=== PATIENT | male | born 1985 | race Hispanic/Latino ===

== ENCOUNTER 2020-03-27 10:52 | Observation (INO) | payer MEDICAID ==
[2020-03-27] VITALS (9 sets, daily range): BP systolic 107–138; BP diastolic 53–83
[~2020-03-27] VITALS: Ht 177.8 cm; Wt 109.0 kg
--- NOTE | 2020-03-27 11:07 | NUR ---
PT TO ROOM FOR EXAM
--- NOTE | 2020-03-27 11:10 | NUR ---
PT CHANGED TO GOWN. MONITORS APPLIED. PT ASSESSED. AO X 3. SKIN PINK WARM AND DRY. REPORTS ONE EPISODE OF VOMITING PRIOR TO ARRIVAL NOW LEFT UPPER QUADRANT ABDOMINAL PAIN
[2020-03-27 11:14] LABS: HEMATOCRIT 47.1 % (39.0-50.0); HEMOGLOBIN 16.7 g/dl (14.0-18.0); IMMATURE GRANULOCYTES 0.5 % (0.0-5.0); MEAN CELL VOLUME 89.4 fL CALC (80.0-100.0); MEAN CORPUSCULAR HGB 31.7 pG CALC (26.0-32.0); MEAN CORPUSCULAR HGB CONC 35.5 g/dL CAL (32.0-36.0); NEUT# 14.09 thou/uL (1.82-7.42); RED BLOOD COUNT 5.27 mill/uL (4.70-6.10)
--- NOTE | 2020-03-27 11:15 | NUR ---
PT MEDICATED FOR PAIN AND NAUSEA. FLUIDS INFUSING. AT BEDSIDE.
[2020-03-27 11:34] LABS: ALBUMIN 4.4 g/dL (3.2-5.0); ALKALINE PHOSPHATASE 120 u/l (38-126); BILIRUBIN, TOTAL 0.9 mg/dL (0.0-1.4); BUN 11 mg/dL (9-20); BUN/CREATININE RATIO 14 (12-20 (CALC)); CARBON DIOXIDE 24 mmol/l (22-30); CHLORIDE 101 mmol/l (95-108); CREATININE 0.8 mg/dL (0.7-1.3); GFR > 60 ML/MIN (>=60 (CALC)); GFR FOR AFR.AMER. > 60 ML/MIN (>=60 (CALC)); LIPASE 84 u/l (23-300); POTASSIUM 4.2 mmol/l (3.5-5.1); SGOT/AST 29 u/l (17-59); TOTAL PROTEIN 7.6 g/dL (6.3-8.2)
[2020-03-27 11:35] LABS: ANION GAP 13 (6-22 (CALC)); SODIUM 134 mmol/l (137-146)
[2020-03-27 12:00] LABS: URINE BILIRUBIN - DIPSTICK NEGATIVE (NEGATIVE); URINE BLOOD DIPSTICK NEGATIVE (NEGATIVE); URINE COLOR YELLOW; URINE GLUCOSE - DIPSTICK NEGATIVE (NEGATIVE); URINE KETONE NEGATIVE (NEGATIVE); URINE LEUK ESTERASE NEGATIVE (NEGATIVE); URINE NITRITE - DIPSTICK NEGATIVE (Negative); URINE PH 6.5 (4.5-8.0); URINE PROTEIN - DIPSTICK NEGATIVE (NEG-TRACE); URINE UROBILINOGEN - DIPSTICK 0.2 E.U./dL (0.2)
--- NOTE | 2020-03-27 12:15 | NUR ---
PT RESTING COMFORTABLY AWAITING RESULTS
--- NOTE | 2020-03-27 13:21 | NUR ---
PT LAST DRANK WATER AT 0730 LAST FOOD AT 03/26.
--- NOTE | 2020-03-27 13:57 | NUR ---
MED SURG UNABLE TO TAKE REPORT AT THIS TIME
--- NOTE | 2020-03-27 14:25 | NUR ---
REPORT GIVEN TO WILLIAM MCGEETHERAPY MANAGER. PT TRANSPORTED VIA WHEELCHAIR TO MED SURG
--- NOTE | 2020-03-27 14:28 | NUR ---
PT ARRIVED TO FLOOR IN STABLE CONDITION VIA WHEELCHAIR ACCOMPIANED BY ARELY HUSTON.PT AMBULATED WITH A STEADY GAIT FROM WHEELCHAIR TO BATHROOM AND THEN TO THE BED. PT REPORTED HAVING ABDOMINAL PAIN AND VOMITING UPON ARRIVING TO THE ED. ASSESSMENT AND VITALS OBTAINED BP 138/83, HR 70, O2 100% ON ROOM AIR.PT IS A/O X3 AND AMBULATES INDEPENDENTLY. HEART RHYTHM IS NORMAL, BOWEL SOUNDS ARE ACTIVE IN ALL QUADRANTS WITH NO TENDERNESS,LUNG SOUNDS ARE CLEAR. PT STATED THAT LAST BM WAS 03/27/20 IN THE MORNING. RADIAL AND PEDAL PULSES ARE STRONG WITH NORMAL CAPILLARY REFILL. PT HAS BUMPS ON THE OUTSIDE OF BOTH FEET, BETWEEN TOP OF FOOT AND ANKLE. PT REPORTS IT BEING NORMAL AND ALWAYING HAVING THEM .SKIN IS COOL AND DRY WITH NO SKIN BREAKDOWN. IV #20G RAC FLUSHED, SITE APPEARS HEALTHY AND PATENT. NS STARTED, RUNNING AT 100 ML ORDERED. PT REPORTS BEING ALLERGIC TO SUCRALFATE, RESULTING IN ABDOMINAL PAIN, ALLERGY BAND APPLIED. PT INFORMS WRITTER THAT HE DOES GO TO THE [facility] FOR SCOLIOSIS. ONLY BELONGINGS THAT PT HAS IS TWO NECKLACES THAT HE IS WEARING AT THIS TIME.PT INFORMERED WRITTER THAT HE DID FALL ABOUT TWO MONTHS AGO AN TWISTED ANKLE, NO OTHER REPORTED FALLS.PT STATES THAT HE DOES DRINK BEER, 3-4 BEER A DAY. 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 ALL SAFTEY PRECAUTIONS IN PLACE WITH CALL LIGHT IN REACH. WILL CONTINUE TO MONITOR
--- NOTE | 2020-03-27 14:49 | NUR ---
SPOKE WITH KOURTNEY,OR GARTH. PT TO BE TAKEN TO OR @ 1600 FOR APPENDECTOMY BY . PT NOTIFIED AND VERBALIZES UNDERSTANDING.
--- NOTE | 2020-03-27 16:10 | NUR ---
PT TRANSPORTED TO OR IN STABLE CONDITION VIA STRETCHER ACCOMPANIED BY ARELY STRAUSS.
--- NOTE | 2020-03-27 18:45 | NUR ---
PT ARRIVED TO FLOOR IN STABLE CONDITION ACCOMPAINED BY OR STAFF VIA STRETCHER. PT SLIDE FROM OR BED TO MEDSUR BED WITH LITTLE DIFFICULTY. ASSESSMENT AND VITALS OBTAINED. BP 132/64, HR 64, O2 98% ON ROOM AIR. HEART RHYTHM IS NORMAL, BOWEL SOUNDS ARE ACTIVE IN ALL QUADRANTS WITH SOME TENDERNESS, LUNG SOUNDS ARE CLEAR. RADIAL AND PEDAL PULSES ARE STRONG WITH NORMAL CAPILLARY REFILL. NO EDEMA IN ANY EXTREMITIES.DRESSING ARE CDI. PT REQUESTED WATER, WATER GIVEN. PT DENIES ANY OTHER PAIN OR DISCOMFORTS AT THIS TIME BESIDES THE TENDERNESS IN THE ABDOMEN. ALL SAFTEY PRECAUTIONS IN PLACE WITH CALL LIGHT IN REACH. WILL CONTINUE TO MONITOR.
--- NOTE | 2020-03-27 20:00 | NUR ---
PT RESTING COMFORTABLY IN BED. PT ON NIBP MONITOR FOR POST-OP VS. VS ASSESED. PHYISCAL ASSESSMENT COMPLETE. PLAN OF CARE REVIEWED, PT VERBALIZES UNDERSTANDING AND DENIES QUESTIONS. PT PROVIDED W/ GINGERALE AND SALTINES PER HIS REQUEST TO "EAT SOMETHING". PT TOLERATED W/O PAIN, N/V. DENIES FURTHER NEEDS @ THIS TIME. ITEMS WITHIN REACH. BED LOCKED IN LOW POSITION W/ BEDRAILS UPX2. CALL VENTURA WITHIN REACH, AGREES TO CALL PRN.
--- NOTE | 2020-03-28 02:26 | NUR ---
PT APPEARS TO BE SLEEPING, APPEARS COMFORTABLE, NO APPARENT DISTRESS. RESPIRATIONS REGULAR AND UNLABORED. CALL VENTURA REMAINS WITHIN REACH.
[2020-03-28 03:50] VITALS: BP 105/68
[2020-03-28 05:13] LABS: HEMATOCRIT 41.6 % (39.0-50.0); IMMATURE GRANULOCYTES 0.4 % (0.0-5.0); MEAN CELL VOLUME 91.8 fL CALC (80.0-100.0); MEAN CORPUSCULAR HGB 31.3 pG CALC (26.0-32.0); MEAN CORPUSCULAR HGB CONC 34.1 g/dL CAL (32.0-36.0); NEUT# 6.33 thou/uL (1.82-7.42); RED BLOOD COUNT 4.53 mill/uL (4.70-6.10); RED CELL DISTRI WIDTH 13.1 % (11.5-15.5)
[2020-03-28 05:25] LABS: HEMOGLOBIN 14.2 g/dl (14.0-18.0)
[2020-03-28 05:33] LABS: ALKALINE PHOSPHATASE 73 u/l (38-126); ANION GAP 10 (6-22 (CALC)); BILIRUBIN, TOTAL 1.2 mg/dL (0.0-1.4); BUN 8 mg/dL (9-20); BUN/CREATININE RATIO 10 (12-20 (CALC)); CARBON DIOXIDE 22 mmol/l (22-30); CHLORIDE 106 mmol/l (95-108); CREATININE 0.8 mg/dL (0.7-1.3); GFR > 60 ML/MIN (>=60 (CALC)); GFR FOR AFR.AMER. > 60 ML/MIN (>=60 (CALC)); SGOT/AST 25 u/l (17-59); SODIUM 135 mmol/l (137-146)
[2020-03-28 05:46] LABS: TOTAL PROTEIN 5.7 g/dL (6.3-8.2)
--- NOTE | 2020-03-28 05:56 | NUR ---
PHYSICAL ASSESMENT REMAINS UNCHANGED FROM START OF SHIFT BASELINE. AM VS AND TELEMETRY READING ASSESSED. PT RESTING IN BED COMFORTABLY, DENIES NEEDS @ THIS TIME. ITEMS REMAIN WITHIN REACH. BED REMAINS LOCKED IN LOW POSITION W/ BED RAILS UP X2. CALL VENTURA REMAINS WITHIN REACH, AGREES TO CALL PRN.
--- NOTE | 2020-03-28 07:30 | NUR ---
RECIEVED REPORT FROM ARELY ALCALA. PT RESTING IN SEMI FOWLERS POSITION WATCHING TV. INTORDUCED SELF TO PT AND DICUSSED POC. BREATHING IS EVEN AND UNLABORED. PT DENIES ANY PAIN OR DISCOMFORTS AT THIS TIME. ALL SAFTEY PRECAUTIONS IN PLACE WITH CALL LIGHT IN REACH. WILL CONTINUE TO MONITOR.
--- NOTE | 2020-03-28 08:00 | NUR ---
ASSESSMENT AND VITALS OBTAINED AT THIS TIME .PT A/O X3 AND AMBULATORY.HEART RHYTHM IS NORMAL, BOWEL SOUNDS ARE ACTIVE IN ALL QUADRANTS, LUNG SOUNDS ARE CLEAR. IV RUNNING AT 75ML NS ORDERED, SITE APPEARS HEALTHY AND PATENT.PT RECIEVED APPENDECTOMY ON 03/27/20.DRESSINGS ARE CDI. PT DESCRIBES A LITTLE TENDERNESS LOCATED ON LEFT SIDE OF ABDOMEN, PT STATED THAT HE DID NOT NEED ANY MEDICATION AT THIS TIME. NO EDEMA IN ANY EXTREMITIES. RADIAL AND PEDAL PULSES ARE BOTH STRONG. SKIN IS COOL AND DRY WITH NO BREAK DOWN.EYES ARE BRISK AND PERRAL. PT DENIES ANY OTHER PAIN OR DISCOMFORTS AT THIS TIME. ALL SAFTEY PRECAUTIONS IN PLACE WITH CALL LIGHT IN PLACE. WILL CONTINUE TO MONITOR.
[2020-03-28 08:07] VITALS: BP 109/73
--- NOTE | 2020-03-28 08:49 | NUR ---
AT BEDSIDE DISCUSSING POC INCLUDING PLANS TO DISCHARGE HOME.
--- NOTE | 2020-03-28 10:13 | NUR ---
AT BEDSIDE DISCUSSING POC INCLUDING PLANS TO D/C HOME,PT VERBALIZES UNDERSTANDING.
--- NOTE | 2020-03-28 12:11 | NUR ---
PT EDUCATED ON DISCHARGE INSTRUCTIONS AND PRESCRIPTIONS AT THIS TIME. PT VERBALIZED UNDERSTANDING AND HAD NO QUESTIONS.IV ROMVED WITH CATHATER STILL INTACT. PT TOLERATED WELL. AWAITING FOR TRANSPORTATION.ALL SAFTEY PRECAUTIONS IN PLACE WITH CALL LIGHT IN REACH. WILL CONTIUE TO MONITOR.
--- NOTE | 2020-03-28 12:30 | NUR ---
Discharge instructions given. Patient verbalizes understanding of same. Discharged in stable condition via Wheelchair to Home with family. All belongings sent with pt. PT TRANSPORTED TO [facility] IN STABLE CONDITION VIA WHEELCHAIR ACCOMPANIED BY SERVANDO GRAHAM.SPOUSE TO TRANSPORT PT HOME.
== END 2020-03-28 12:30 | disposition home or self-care (01) ==
LOC: ED 10:52 → ED-I 12:50 → ED 13:11 → ED-I 13:12 → MS2 14:00
PROVIDERS: Family Medicine; Nurse Practitioner Family; ADMIT Internal Medicine; ATTEND Internal Medicine
DX: K35.30 Acute appendicitis with localized peritonitis, without perforation or gangrene (principal); Z87.891 Personal history of nicotine dependence; Z11.59 Encounter for screening for other viral diseases
CPT/HCPCS: G0378; J0131; J2710; Q9967